=== PATIENT | female | born 1975 | race Caucasian/White ===

== ENCOUNTER 2017-01-11 00:58 | Emergency (ER) | payer OTHER ==
[~2017-01-11] VITALS: Ht 180.3 cm; Wt 100.3 kg
[~2017-01-11 00:58] MED LIST: ABILIFY2 MG PO; ALBUTEROL1.25 MG/3 IH; ALBUTEROL17 G1 IH; ALPRAZOLAM1 MG PO; AMBIEN5 MG PO; AMLOD-VALSA-HC1 EAC2 PO; AMLODIPINE BESYL5 MG PO; CLONAZEPAM0.5 MG PO; DESYREL100 MG PO; EFFEXOR XR150 MG PO; EFFEXOR XR37.5 MG PO; FLEXERIL10 MG PO; HYDROCHLOROTHIA25 MG PO; LEXAPRO5 MG; LIPITOR20 MG PO; LISINOPRIL40 MG PO; LOPRESSOR25 MG PO; Lisinopril PO; METOPROLOL SUCC25 MG PO; MORPHINE SULFAT15 M1 PO; NEURONTIN100 MG PO; OXYCONTIN10 MG PO; VENTOLIN HFA18 GM IH; VITAMIN D400 UNIT PO; XANAX0.5 MG PO; XANAX1 MG PO; ZOLOFT100 MG PO; ZOLPIDEM TARTRAT5 MG PO; ZYRTEC10 MG PO
[2017-01-11 01:44] LABS: HEMATOCRIT 40.9 % (36.0-46.0); MCH 28.4 PG (29.0-34.0); MCHC 33.3 G/DL (30.0-36.0); MCV 85.4 FL (83-99); MEAN PLAT.VOLUME 8.3 uM^3 (9.5-12.4); PLATELET COUNT 331 K/uL (156-360); RBC DIS.WIDTH-CV 12.5 % (11.8-14.6); RBC DIS.WIDTH-SD 38.3 % (39-53); RED BLOOD COUNT 4.79 M/uL (3.80-5.20); WHITE BLOOD COUNT 10.2 K/uL (4.1-10.2)
[2017-01-11 01:52] LABS: CHLORIDE 111 mEq/L (99-109); POTASSIUM 3.9 mEq/L (3.7-5.4); SODIUM 143 mEq/L (136-147)
[2017-01-11 01:54] LABS: GLUCOSE 99 mg/dL (70-99)
[2017-01-11 01:55] LABS: ANION GAP 11 MEQ/L (2-14)
[2017-01-11 01:57] LABS: SERUM ETHYL ALCOHOL 185 mg/dL
[2017-01-11 01:58] LABS: GFR ESTIMATE (CALCULATED) > 59 mL/min/
[2017-01-11 01:59] LABS: UREA NITROGEN (BUN) 10 mg/dL (9-23)
[2017-01-11 02:07] LABS: QUANTITATIVE HCG < 4.0 MIU/ML
[2017-01-11 02:30] VITALS: BP 131/75
== END 2017-01-11 02:32 ==
LOC: EME → EDBD 00:58 → EME 02:32
PROVIDERS: Emergency Medicine
DX: S50.11XA Contusion of right forearm, initial encounter (principal); V98.8XXA Other specified transport accidents, initial encounter; F10.129 Alcohol abuse with intoxication, unspecified; I10 Essential (primary) hypertension; E78.5 Hyperlipidemia, unspecified; E11.9 Type 2 diabetes mellitus without complications; F17.200 Nicotine dependence, unspecified, uncomplicated
CPT/HCPCS: 73060; 73090; 80048; 84702; 85027; 99281; 99284; G0480; J1630; J2060

== ENCOUNTER 2017-03-19 22:54 | Inpatient (IN) | payer OTHER ==
[~2017-03-19] VITALS: Ht 180.3 cm; Wt 120.5 kg
[2017-03-19 23:53] LABS: HEMATOCRIT 43.4 % (36.0-46.0); MCH 28.1 PG (29.0-34.0); MCHC 31.3 G/DL (30.0-36.0); MCV 89.7 FL (83-99); MEAN PLAT.VOLUME 8.5 uM^3 (9.5-12.4); PLATELET COUNT 337 K/uL (156-360); RBC DIS.WIDTH-CV 13.8 % (11.8-14.6); RBC DIS.WIDTH-SD 44.8 % (39-53); RED BLOOD COUNT 4.84 M/uL (3.80-5.20); WHITE BLOOD COUNT 24.8 K/uL (4.1-10.2)
[2017-03-20] VITALS (22 sets, daily range): BP systolic 98–158; BP diastolic 58–87
[2017-03-20 00:01] LABS: CHLORIDE 108 mEq/L (99-109); SODIUM 146 mEq/L (136-147)
[2017-03-20 00:03] LABS: GLUCOSE 98 mg/dL (70-99)
[2017-03-20 00:04] LABS: ANION GAP 20 MEQ/L (2-14)
[2017-03-20 00:06] LABS: GFR ESTIMATE (CALCULATED) 18 mL/min/; SERUM ETHYL ALCOHOL < 10 mg/dL
[2017-03-20 00:08] LABS: UREA NITROGEN (BUN) 44 mg/dL (9-23)
[2017-03-20 00:10] LABS: SALICYLATE < 5.0 MG/DL (15-30)
[2017-03-20 00:18] LABS: QUANTITATIVE HCG < 4.0 MIU/ML
[2017-03-20 00:36] LABS: BICARBONATE 23.4 mEq/L (22-26); CARBOXY HGB 3.6 % (0-5); COMMENTS - BLOOD GASES C+A+; DEVICE 980 VENT; FI02 100 %; MECHANICAL RATE 16 resp/min; METHEMOGLOBIN 1.1 % (0-1.5); MODE AC; PCO2 51 mm Hg (35-45); PEEP 8 CM/H20; PO2 75 mm Hg (80-100); SITE LR; TIDAL VOLUME 500 ML; TOTAL RESP RATE 16 resp/min; pH 7.27 (7.35-7.45)
[2017-03-20 00:46] LABS: AMPHETAMINE NEGATIVE (500 ng/mL); BARBITURATES NEGATIVE (200 ng/mL); BENZODIAZEPINES PRESUMPTIVE POSITIVE (150 ng/mL); COCAINE NEGATIVE (150 ng/mL); INTERNAL CONTROLS VALID? YES; METHADONE NEGATIVE (200 ng/mL); METHAMPHETAMINE NEGATIVE (500 ng/mL); OPIATES (MORPHINE) PRESUMPTIVE POSITIVE (100 ng/mL); OXYCODONE NEGATIVE (100 ng/mL); PHENCYCLIDINE NEGATIVE (25 ng/mL); PROPOXYPHENE NEGATIVE (300 ng/mL); THC CANNABINOIDS NEGATIVE (50 ng/mL); TRICYCLIC ANTIDEPRESSANTS NEGATIVE (300 ng/mL)
[2017-03-20 00:47] LABS: ADD MEDTOX COMMENT Y
[2017-03-20 01:34] LABS: BENZODIAZEPINES, URINE SCREEN POSITIVE (200 ng/mL)
[2017-03-20 01:57] LABS: CREATINE KINASE 5406 IU/L (1-294)
[2017-03-20 04:55] LABS: METH RESISTANT S AUREUS PCR NEGATIVE (NEGATIVE)
[2017-03-20 05:10] LABS: PROBE CHECK PASS; SPECIMEN PROCESSING CONTROL PASS
[2017-03-20 05:23] LABS: HEMATOCRIT 36.3 % (36.0-46.0); MCH 27.4 PG (29.0-34.0); MCHC 30.6 G/DL (30.0-36.0); MCV 89.6 FL (83-99); RBC DIS.WIDTH-SD 46.2 % (39-53); RED BLOOD COUNT 4.05 M/uL (3.80-5.20); WHITE BLOOD COUNT 20.4 K/uL (4.1-10.2)
[2017-03-20 05:41] LABS: ANION GAP 10 MEQ/L (2-14); CHLORIDE 111 MEQ/L (99-109); GFR ESTIMATE (CALCULATED) 20 mL/min/; GLUCOSE 99 mg/dL (70-99); POTASSIUM 5.2 MEQ/L (3.7-5.4); SAMPLE HEMOLYSIS CHECK 0; SAMPLE ICTERIC CHECK 0; SAMPLE LIPEMIA CHECK 0; SODIUM 143 MEQ/L (136-147); UREA NITROGEN (BUN) 44 mg/dL (9-23)
[2017-03-20 06:22] LABS: ABS NEUTROPHIL COUNT 17.7; BAND NEUTROPHILS 16.8 % (0-8.0); EOSINOPHIL ABS CT 0; INSTRUMENT ABS NEUTROPHIL CT 16.7 K/uL; LYMPHOCYTES 8.9 % (15.0-45.0); MEAN PLAT.VOLUME 8.9 uM^3 (9.5-12.4); METAMYELOCYTES 3.5 %; PLATELET COUNT 263 K/uL (156-360); SEG.NEUTROPHILS 69.9 % (46.0-76.0)
[2017-03-20 07:38] LABS: CK-MB 140.3 ng/mL (0.0-4.9)
[2017-03-20 07:48] LABS: TOTAL CK 5611 IU/L (1-294)
[2017-03-20 07:49] LABS: CREATINE KINASE 5611 IU/L (1-294)
[2017-03-20 16:17] LABS: BASE EXCESS -2.7 mEq/L (-3 to +3); BICARBONATE 23.7 mEq/L (22-26); CARBOXY HGB 1.6 % (0-5); METHEMOGLOBIN 1.6 % (0-1.5); PCO2 47 mm Hg (35-45); PO2 64 mm Hg (80-100); pH 7.31 (7.35-7.45)
[2017-03-20 16:18] LABS: DEVICE 980; FI02 30 %; MODE TC; SITE RR
[2017-03-20 18:12] LABS: BASE EXCESS -2.7 mEq/L (-3 to +3); BICARBONATE 23.2 mEq/L (22-26); CARBOXY HGB 1.7 % (0-5); METHEMOGLOBIN 1.6 % (0-1.5); PCO2 44 mm Hg (35-45); PO2 62 mm Hg (80-100); pH 7.33 (7.35-7.45)
[2017-03-20 18:15] LABS: CONTINUOUS POS AIRWAY PRESSURE 5 cm H2O; DEVICE PB980; FI02 40 %; MODE PS/CPAP; PRES. SUPPORT 5 CM/H2O; SITE RR; TOTAL RESP RATE 20 resp/min
[2017-03-20 18:16] LABS: COMMENTS - BLOOD GASES A+C+
[2017-03-21] VITALS (21 sets, daily range): BP systolic 113–163; BP diastolic 67–97
[2017-03-21 05:44] LABS: HEMATOCRIT 30.7 % (36.0-46.0); MCH 27.4 PG (29.0-34.0); MCHC 30.6 G/DL (30.0-36.0); MCV 89.5 FL (83-99); MEAN PLAT.VOLUME 9.1 uM^3 (9.5-12.4); PLATELET COUNT 216 K/uL (156-360); RBC DIS.WIDTH-CV 14.3 % (11.8-14.6); RBC DIS.WIDTH-SD 46.5 % (39-53); RED BLOOD COUNT 3.43 M/uL (3.80-5.20); WHITE BLOOD COUNT 14.8 K/uL (4.1-10.2)
[2017-03-21 06:02] LABS: ANION GAP 7 MEQ/L (2-14); CHLORIDE 117 MEQ/L (99-109); GLUCOSE 90 mg/dL (70-99); SAMPLE HEMOLYSIS CHECK 0; SAMPLE ICTERIC CHECK 0; SAMPLE LIPEMIA CHECK 0; SODIUM 148 MEQ/L (136-147); UREA NITROGEN (BUN) 24 mg/dL (9-23)
[2017-03-21 06:06] LABS: GFR ESTIMATE (CALCULATED) > 59 mL/min/
[2017-03-21 10:35] LABS: CREATINE KINASE 5540 IU/L (1-294)
[2017-03-21] MEDS ORDERED: CLARITIN10 M3 PO (19:49)
[2017-03-21] MEDS ORDERED: XANAX1 MG PO (19:49)
[2017-03-21] MEDS ORDERED: CLONIDINE HCL0.1 MG PO (19:49)
[2017-03-21] MEDS ORDERED: KLONOPIN1 MG PO (19:50)
[2017-03-21] MEDS ORDERED: MORPHINE SULFAT15 M1 PO (19:50)
[2017-03-21] MEDS ORDERED: OXYCODONE HCL10 MG PO (19:50)
[2017-03-21] MEDS ORDERED: VRAYLAR3 MG PO ×2 (19:51)
[2017-03-21] MEDS ORDERED: DESYREL 150 MG150 MG PO (19:56)
[2017-03-22] VITALS (8 sets, daily range): BP systolic 138–170; BP diastolic 75–91
[2017-03-22 06:03] LABS: HEMATOCRIT 28.4 % (36.0-46.0); MCH 27.4 PG (29.0-34.0); MCHC 31.7 G/DL (30.0-36.0); MCV 86.3 FL (83-99); PLATELET COUNT 192 K/uL (156-360); RBC DIS.WIDTH-CV 14.1 % (11.8-14.6); RBC DIS.WIDTH-SD 44.6 % (39-53); RED BLOOD COUNT 3.29 M/uL (3.80-5.20); WHITE BLOOD COUNT 12.9 K/uL (4.1-10.2)
[2017-03-22 06:51] LABS: ANION GAP 10 MEQ/L (2-14); CHLORIDE 111 MEQ/L (99-109); GFR ESTIMATE (CALCULATED) > 59 mL/min/; GLUCOSE 93 mg/dL (70-99); MAGNESIUM 1.7 mg/dl (1.3-2.7); POTASSIUM 3.2 MEQ/L (3.7-5.4); SAMPLE HEMOLYSIS CHECK 0; SAMPLE ICTERIC CHECK 0; SAMPLE LIPEMIA CHECK 0; SODIUM 142 MEQ/L (136-147); UREA NITROGEN (BUN) 12 mg/dL (9-23)
[2017-03-22 06:57] LABS: CREATINE KINASE 3401 IU/L (1-294)
[2017-03-22 11:13] LABS: C DIFF TOXIN NEGATIVE (NEGATIVE)
[2017-03-22 11:15] LABS: PROBE CHECK PASS; SPECIMEN PROCESSING CONTROL PASS
[2017-03-23 03:56] LABS: BASE EXCESS 2.6 mEq/L (-3 to +3); BICARBONATE 26.1 mEq/L (22-26); CARBOXY HGB 1.6 % (0-5); METHEMOGLOBIN 1.5 % (0-1.5); PCO2 35 mm Hg (35-45); PO2 42 mm Hg (80-100); SITE RR; pH 7.48 (7.35-7.45)
[2017-03-23 03:57] LABS: COMMENTS - BLOOD GASES C+A+; DEVICE HFNC; O2 FLOW 15 L/MIN; TOTAL RESP RATE 22 resp/min
[2017-03-23 06:24] LABS: HEMATOCRIT 29.6 % (36.0-46.0); MCH 27.1 PG (29.0-34.0); MCHC 31.8 G/DL (30.0-36.0); MCV 85.3 FL (83-99); PLATELET COUNT 205 K/uL (156-360); RBC DIS.WIDTH-CV 13.9 % (11.8-14.6); RBC DIS.WIDTH-SD 43.3 % (39-53); RED BLOOD COUNT 3.47 M/uL (3.80-5.20); WHITE BLOOD COUNT 15.5 K/uL (4.1-10.2)
[2017-03-23 06:47] LABS: ANION GAP 11 MEQ/L (2-14); CHLORIDE 107 MEQ/L (99-109); GFR ESTIMATE (CALCULATED) > 59 mL/min/; GLUCOSE 89 mg/dL (70-99); MAGNESIUM 1.8 mg/dl (1.3-2.7); POTASSIUM 2.9 MEQ/L (3.7-5.4); SAMPLE HEMOLYSIS CHECK 0; SAMPLE ICTERIC CHECK 0; SAMPLE LIPEMIA CHECK 0; SODIUM 143 MEQ/L (136-147); UREA NITROGEN (BUN) 8 mg/dL (9-23)
[2017-03-23 06:48] LABS: CREATINE KINASE 1104 IU/L (1-294)
[2017-03-23 07:54] VITALS: BP 166/77
[2017-03-23 17:15] VITALS: BP 137/84
[2017-03-23 19:56] VITALS: BP 142/67
[2017-03-23 20:43] LABS: BASE EXCESS 10.9 mEq/L (-3 to +3); CARBOXY HGB 1.5 % (0-5); METHEMOGLOBIN 1.6 % (0-1.5); pH 7.51 (7.35-7.45)
[2017-03-23 20:44] LABS: BICARBONATE 35.1 mEq/L (22-26); COMMENTS - BLOOD GASES A+C+; PCO2 44 mm Hg (35-45); PO2 56 mm Hg (80-100); SITE LR
[2017-03-23 20:45] LABS: DEVICE NRB MASK; O2 FLOW 15 L/MIN
[2017-03-23 21:00] VITALS: BP 142/77
[2017-03-23 22:00] VITALS: BP 138/74
[2017-03-23 22:30] LABS: ANION GAP 10 MEQ/L (2-14); CHLORIDE 98 MEQ/L (99-109); MAGNESIUM 1.9 mg/dl (1.3-2.7); POTASSIUM 2.6 MEQ/L (3.7-5.4); SAMPLE HEMOLYSIS CHECK 0; SAMPLE ICTERIC CHECK 0; SAMPLE LIPEMIA CHECK 0; SODIUM 138 MEQ/L (136-147)
[2017-03-23 22:38] LABS: GFR ESTIMATE (CALCULATED) > 59 mL/min/; UREA NITROGEN (BUN) 5 mg/dL (9-23)
[2017-03-23 22:46] LABS: METH RESISTANT S AUREUS PCR NEGATIVE (NEGATIVE)
[2017-03-23 22:47] LABS: PROBE CHECK PASS; SPECIMEN PROCESSING CONTROL PASS
[2017-03-23 23:00] VITALS: BP 111/54
[2017-03-23 23:08] LABS: GLUCOSE 145 mg/dL (70-99)
[2017-03-24] VITALS (18 sets, daily range): BP systolic 112–178; BP diastolic 49–104
[2017-03-24 06:28] LABS: MCH 27.5 PG (29.0-34.0); MCHC 32.8 G/DL (30.0-36.0); MCV 84.1 FL (83-99); MEAN PLAT.VOLUME 9.5 uM^3 (9.5-12.4); PLATELET COUNT 206 K/uL (156-360); RBC DIS.WIDTH-CV 13.6 % (11.8-14.6); RBC DIS.WIDTH-SD 41.7 % (39-53); RED BLOOD COUNT 3.45 M/uL (3.80-5.20)
[2017-03-24 06:41] LABS: WHITE BLOOD COUNT 9.1 K/uL (4.1-10.2)
[2017-03-24 07:06] LABS: ANION GAP 13 MEQ/L (2-14); CHLORIDE 99 MEQ/L (99-109); GFR ESTIMATE (CALCULATED) > 59 mL/min/; GLUCOSE 164 mg/dL (70-99); SAMPLE HEMOLYSIS CHECK 0; SAMPLE ICTERIC CHECK 0; SAMPLE LIPEMIA CHECK 0; SODIUM 143 MEQ/L (136-147); UREA NITROGEN (BUN) 8 mg/dL (9-23)
[2017-03-24 15:01] LABS: BASE EXCESS 11.5 mEq/L (-3 to +3); BICARBONATE 35.9 mEq/L (22-26); CARBOXY HGB 0.9 % (0-5); COMMENTS - BLOOD GASES A+C+; DEVICE 980 MASK VENT; FI02 100 %; MODE SPONT; PCO2 46 mm Hg (35-45); PEEP 8 CM/H20; PO2 179 mm Hg (80-100); PRES. SUPPORT 12 CM/H2O; SITE RR; TOTAL RESP RATE 18 resp/min
[2017-03-24 22:02] LABS: ANION GAP 7 MEQ/L (2-14); CHLORIDE 103 MEQ/L (99-109); MAGNESIUM 2.1 mg/dl (1.3-2.7); POTASSIUM 2.8 MEQ/L (3.7-5.4); SAMPLE HEMOLYSIS CHECK 0; SAMPLE ICTERIC CHECK 0; SAMPLE LIPEMIA CHECK 0; SODIUM 142 MEQ/L (136-147)
[2017-03-24 22:07] LABS: GFR ESTIMATE (CALCULATED) > 59 mL/min/; GLUCOSE 155 mg/dL (70-99); UREA NITROGEN (BUN) 9 mg/dL (9-23)
[2017-03-25] VITALS (21 sets, daily range): BP systolic 103–156; BP diastolic 36–99
[2017-03-25 05:06] LABS: HEMATOCRIT 27.5 % (36.0-46.0); MCH 27.2 PG (29.0-34.0); MCHC 31.6 G/DL (30.0-36.0); MCV 85.9 FL (83-99); MEAN PLAT.VOLUME 9.9 uM^3 (9.5-12.4); PLATELET COUNT 242 K/uL (156-360); RBC DIS.WIDTH-CV 13.7 % (11.8-14.6); WHITE BLOOD COUNT 11.7 K/uL (4.1-10.2)
[2017-03-25 05:16] LABS: CHLORIDE 105 mEq/L (99-109); SODIUM 142 mEq/L (136-147)
[2017-03-25 05:17] LABS: MAGNESIUM 1.8 mg/dL (1.3-2.7); POTASSIUM 3.7 mEq/L (3.7-5.4)
[2017-03-25 05:18] LABS: GLUCOSE 149 mg/dL (70-99)
[2017-03-25 05:19] LABS: ANION GAP 8 MEQ/L (2-14)
[2017-03-25 05:22] LABS: GFR ESTIMATE (CALCULATED) > 59 mL/min/
[2017-03-25 05:23] LABS: UREA NITROGEN (BUN) 9 mg/dL (9-23)
[2017-03-26] VITALS (10 sets, daily range): BP systolic 99–178; BP diastolic 49–94
[2017-03-26 06:34] LABS: HEMATOCRIT 29.3 % (36.0-46.0); MCH 27.2 PG (29.0-34.0); MCHC 31.1 G/DL (30.0-36.0); MCV 87.7 FL (83-99); MEAN PLAT.VOLUME 9.6 uM^3 (9.5-12.4); PLATELET COUNT 284 K/uL (156-360); RBC DIS.WIDTH-CV 14.3 % (11.8-14.6); RBC DIS.WIDTH-SD 45.7 % (39-53); RED BLOOD COUNT 3.34 M/uL (3.80-5.20); WHITE BLOOD COUNT 10.6 K/uL (4.1-10.2)
[2017-03-26 06:59] LABS: ANION GAP 11 MEQ/L (2-14); CHLORIDE 108 MEQ/L (99-109); GFR ESTIMATE (CALCULATED) > 59 mL/min/; GLUCOSE 158 mg/dL (70-99); MAGNESIUM 2.2 mg/dl (1.3-2.7); POTASSIUM 3.2 MEQ/L (3.7-5.4); SAMPLE HEMOLYSIS CHECK 0; SAMPLE ICTERIC CHECK 0; SAMPLE LIPEMIA CHECK 0; SODIUM 143 MEQ/L (136-147); UREA NITROGEN (BUN) 16 mg/dL (9-23)
[2017-03-27 04:21] VITALS: BP 161/81
[2017-03-27 05:25] LABS: HEMATOCRIT 28.7 % (36.0-46.0); MCH 27.4 PG (29.0-34.0); MCHC 31.7 G/DL (30.0-36.0); MCV 86.4 FL (83-99); MEAN PLAT.VOLUME 9.5 uM^3 (9.5-12.4); PLATELET COUNT 310 K/uL (156-360); RBC DIS.WIDTH-CV 14.2 % (11.8-14.6); RBC DIS.WIDTH-SD 44.4 % (39-53); RED BLOOD COUNT 3.32 M/uL (3.80-5.20)
[2017-03-27 05:49] LABS: ANION GAP 8 MEQ/L (2-14); CHLORIDE 108 MEQ/L (99-109); GFR ESTIMATE (CALCULATED) > 59 mL/min/; GLUCOSE 133 mg/dL (70-99); MAGNESIUM 2.1 mg/dl (1.3-2.7); POTASSIUM 3.2 MEQ/L (3.7-5.4); SAMPLE HEMOLYSIS CHECK 0; SAMPLE ICTERIC CHECK 0; SAMPLE LIPEMIA CHECK 0; SODIUM 141 MEQ/L (136-147); UREA NITROGEN (BUN) 20 mg/dL (9-23)
[2017-03-27 08:08] VITALS: BP 156/80
[2017-03-27 11:36] VITALS: BP 167/75
[2017-03-27 16:04] VITALS: BP 153/69
[2017-03-27 23:34] VITALS: BP 146/78
[2017-03-28 05:18] LABS: MCH 27.2 PG (29.0-34.0); MCHC 32.1 G/DL (30.0-36.0); MCV 84.8 FL (83-99); MEAN PLAT.VOLUME 9.2 uM^3 (9.5-12.4); NRBC (%) 0.2 /100 WBC (0-0); PLATELET COUNT 349 K/uL (156-360); RBC DIS.WIDTH-CV 14.1 % (11.8-14.6); RBC DIS.WIDTH-SD 43.3 % (39-53); RED BLOOD COUNT 3.42 M/uL (3.80-5.20); WHITE BLOOD COUNT 12.3 K/uL (4.1-10.2)
[2017-03-28 05:34] LABS: ANION GAP 9 MEQ/L (2-14); CHLORIDE 104 MEQ/L (99-109); GFR ESTIMATE (CALCULATED) > 59 mL/min/; GLUCOSE 118 mg/dL (70-99); MAGNESIUM 2.2 mg/dl (1.3-2.7); POTASSIUM 3.4 MEQ/L (3.7-5.4); SAMPLE HEMOLYSIS CHECK 0; SAMPLE ICTERIC CHECK 0; SAMPLE LIPEMIA CHECK 0; SODIUM 141 MEQ/L (136-147); UREA NITROGEN (BUN) 18 mg/dL (9-23)
[2017-03-28 07:54] VITALS: BP 156/77
[2017-03-28] MEDS ORDERED: DOCUSATE SODIU100 MG PO (10:32)
[2017-03-28] MEDS ORDERED: POTASSIUM20 MEQ/11 PO (10:32)
[2017-03-28] MEDS ORDERED: PREDNISONE5 M1 PO (10:32)
[2017-03-28] MEDS ORDERED: BENZONATATE100 MG PO (10:32)
[2017-03-28] MEDS ORDERED: AMOX TR-K CLV1 EAC4 PO (10:32)
[2017-03-28] MEDS ORDERED: OXYCODONE HCL5 MG PO (10:32)
[2017-03-28] MEDS ORDERED: ACIDOPHILUS LA1 EACH PO (10:32)
[2017-03-28] MEDS ORDERED: TRAZODONE HCL100 MG PO (10:32)
[2017-03-28] MEDS ORDERED: OXYGEN MC (10:43)
== END 2017-03-28 15:16 | disposition home or self-care (01) | DRG 917 ==
LOC: EME 22:54 → EDOF 03-20 02:12 → 4SOUTH 03-20 02:12 → 4WEST 03-20 02:12 → 4SOUTH 03-22 09:30 → 4WEST 03-23 20:53 → 3EAST 03-26 16:48
PROVIDERS: Emergency Medicine; Hospitalist; Internal Medicine; Internal Medicine Critical Care Medicine; Pediatrics
DX: T40.2X2A Poisoning by other opioids, intentional self-harm, initial encounter (principal); J96.01 Acute respiratory failure with hypoxia; J69.0 Pneumonitis due to inhalation of food and vomit; J90 Pleural effusion, not elsewhere classified; N17.9 Acute kidney failure, unspecified; I95.9 Hypotension, unspecified; E87.4 Mixed disorder of acid-base balance; E87.2 Acidosis; F33.9 Major depressive disorder, recurrent, unspecified; Y92.9 Unspecified place or not applicable; F41.9 Anxiety disorder, unspecified; E66.9 Obesity, unspecified; Z68.37 Body mass index [BMI] 37.0-37.9, adult; G47.00 Insomnia, unspecified; I10 Essential (primary) hypertension; Z63.0 Problems in relationship with spouse or partner; E87.6 Hypokalemia; M62.82 Rhabdomyolysis; F17.210 Nicotine dependence, cigarettes, uncomplicated; E87.70 Fluid overload, unspecified; R19.7 Diarrhea, unspecified; T36.95XA Adverse effect of unspecified systemic antibiotic, initial encounter; R59.0 Localized enlarged lymph nodes; J44.9 Chronic obstructive pulmonary disease, unspecified; E83.39 Other disorders of phosphorus metabolism; J45.909 Unspecified asthma, uncomplicated; G47.33 Obstructive sleep apnea (adult) (pediatric); G89.29 Other chronic pain; R41.82 Altered mental status, unspecified; D72.829 Elevated white blood cell count, unspecified
CPT/HCPCS: 36600; 70450; 71010; 71250; 71275; 74176; 80048; 80048 91; 82550; 82553; 82803; 83605; 83735; 83930; 84100; 84702; 84999; 85025; 85027; 87040; 87070; 87077; 87147; 87186; 87205; 87493; 87641; 93005; 94002; 94003; 94640; 94640 76; 94660; 94668; 94799; 99202; 99281; 99285; G0480; J0696; J1120; J1644; J1650; J1940; J2250; J2310; J2405; J2543; J2920; J2930; J3010; J3370; J3475; J3480; J7030; J7040; J7050; J7120; S0028

== ENCOUNTER 2018-04-24 09:35 | Emergency (ER) | payer OTHER ==
[~2018-04-24] VITALS: Ht 180.3 cm; Wt 111.9 kg
[~2018-04-24 09:35] MED LIST changes: +ACIDOPHILUS LA1 EACH PO; +AMOX TR-K CLV1 EAC4 PO; +BENZONATATE100 MG PO; +CLARITIN10 M3 PO; +CLONIDINE HCL0.1 MG PO; +DESYREL 150 MG150 MG PO; +DOCUSATE SODIU100 MG PO; +KLONOPIN1 MG PO; +OXYCODONE HCL10 MG PO; +OXYCODONE HCL5 MG PO; +OXYGEN MC; +POTASSIUM20 MEQ/11 PO; +PREDNISONE5 M1 PO; +TRAZODONE HCL100 MG PO; +VRAYLAR3 MG PO
[2018-04-24] MEDS ORDERED: NAPROSYN500 MG PO (11:53)
[2018-04-24] MEDS ORDERED: MEDROL DOSEPAK4 MG PO (11:53)
[2018-04-24] MEDS ORDERED: FLEXERIL10 MG PO (11:59)
[2018-04-24 12:12] VITALS: BP 136/68
== END 2018-04-24 12:13 | disposition home or self-care (01) ==
LOC: EME 09:35
DX: M54.5 Low back pain (principal); M79.605 Pain in left leg; M62.830 Muscle spasm of back; Z91.81 History of falling; Z88.2 Allergy status to sulfonamides
CPT/HCPCS: 72100; 99281; 99284